=== PATIENT | male | born 2000 | race Caucasian/White ===

== ENCOUNTER 2019-05-26 10:49 | Emergency (ER) | payer OTHER ==
[~2019-05-26] VITALS: Ht 175.3 cm; Wt 87.8 kg
[2019-05-26 10:50] VITALS: BP 147/81
--- NOTE | 2019-05-26 12:19 | REP ---
LEFT FIRST TOE: Four views of the left 1st toe performed. There is a nondisplaced fracture at the distal end of the proximal phalanx. This extends into the interphalangeal joint. No other acute fracture or dislocation is seen. Electronically Signed by Roverto Alberto MD 05/26/2019 03:58 P
== END 2019-05-26 12:45 | disposition home or self-care (01) ==
LOC: M ED 10:49
DX: S92.424A Nondisplaced fracture of distal phalanx of right great toe, initial encounter for closed fracture (principal); W01.0XXA Fall on same level from slipping, tripping and stumbling without subsequent striking against object, initial encounter; Y92.214 College as the place of occurrence of the external cause